=== PATIENT | female | born 1925 | race Caucasian/White ===

== ENCOUNTER → 2017-08-04 | Emergency (ER) | payer MEDICARE ==
[~2017-08-04] VITALS: Ht 160 cm; Wt 69.9 kg
[~2017-08-04] MED LIST: ACETAMINOPHEN650 MG RC; ALLOPURINOL300 MG PO; AMLODIPINE BESY10 MG PO; AMLODIPINE BESYL5 MG PO; COLACE100 MG PO; DOCUSATE SODIU100 MG PO; FEROSUL325 MG PO; FOLIC ACID1 MG PO; LASIX20 MG PO; LEVAQUIN500 MG PO; LEXAPRO10 MG PO; LOVENOX60 MG/0.6 SC; MAGNESIUM OXID400 MG PO; MAGNESIUM400 MG PO; MECLIZINE HCL12.5 MG PO; METOPROLOL TART50 MG PO; MINOCIN50 MG PO; MINOCYCLINE HCL50 MG PO; MUCINEX DM ER1 EACH PO; NITROFURANTOIN100 MG PO; PANTOPRAZOLE SO40 MG PO; SEROQUEL25 MG PO; SODIUM CHLORIDE1 GM PO; TESSALON PERLE100 MG; TRAZODONE HCL50 MG PO; TYLENOL WITH C1 EACH PO; ULTRAM50 MG PO; VITAMIN B-121000 MCG PO; XARELTO10 MG PO; [UNRECOGNIZED DRUG - OTHER] PO; flonase INH
--- NOTE | 2017-08-04 12:23 | Diagnostic Imaging Report ---
EXAMINATION: Head CT HISTORY: Status post fall, trauma COMPARISON: Head CT on 04/10/2017 TECHNIQUE: Multidetector axial images were obtained without contrast from the foramen magnum to the vertex . The images were reconstructed using brain and bone algorithms. Thin section brain images were reformatted into coronal and sagittal planes. Intravenous contrast: None. Motion/streaking artifact limits the evaluation of the skull base and posterior cranial fossa. FINDINGS: Parenchyma: 1. Moderate confluent periventricular and [place] white matter hypodensities, most nonspecific chronic microvascular ischemic changes. 2. 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 3. No mass or hemorrhage. No CT evidence of acute territorial vascular insult. Extra-axial spaces: Questionable hyperdensities in the left inferior temporal sulcus are only seen on axial plane without correlation on the coronal or sagittal reconstructions and likely correspond to streak artifact. Otherwise no abnormal density. No extra-axial fluid collections . Prominent atherosclerotic calcification of the cavernous ICAs and along the superior margin of the left side of the pituitary gland are unchanged. Brain volume: Mild generalized brain volume loss, with mild bilateral medial temporal/hippocampal predominance, which can be seen in patients with Alzheimer's disease, only in the appropriate clinical setting. Ventricles: No hydrocephalus or displacement. Arteries: No density suggestive of thrombus. Dural sinuses: No abnormal density. Extra-axial spaces: No abnormal density. Foramen magnum: No mass, Chiari malformation, or basilar invagination. Sella: No obvious mass. Paranasal/mastoid sinuses: Imaged portions unremarkable. Skull/Scalp: No lytic or blastic lesions. No fractures. IMPRESSION: 1. No acute post traumatic intracranial abnormality, particularly no hemorrhage. 2. Unchanged moderate confluent chronic microvascular ischemic changes. 3. Persistent slightly disproportionate medial temporal volume loss as detailed above. Signed by: Dr. Mary Carmen Duncan M.D. on 08/04/2017 12:20 PM
[2017-08-04 13:19] VITALS: BP 92/69
== END | disposition home or self-care (01) ==
LOC: ER 10:53
DX: S06.0X0A Concussion without loss of consciousness, initial encounter (principal); S00.83XA Contusion of other part of head, initial encounter; W07.XXXA Fall from chair, initial encounter; Y93.89 Activity, other specified; Y92.128 Other place in nursing home as the place of occurrence of the external cause; I10 Essential (primary) hypertension; I48.91 Unspecified atrial fibrillation
CPT/HCPCS: 70450; 99284